=== PATIENT | male | born 1955 | race Caucasian/White ===

== ENCOUNTER 2016-08-24 16:29 | Emergency (ER) | payer OTHER ==
[~2016-08-24] VITALS: Ht 167.6 cm; Wt 81.8 kg
[2016-08-24] MEDS ORDERED: PARO20TA24 PO (16:45)
[2016-08-24] MEDS ORDERED: OLAN7.5T2 PO (16:45)
[2016-08-24] MEDS ORDERED: TAMS0.4C32 PO (16:45)
[2016-08-24] MEDS ORDERED: APIX2.5T PO (16:45)
[2016-08-24] MEDS ORDERED: RISP1 PO (16:45)
[2016-08-24] MEDS ORDERED: BENZ0.5T6 PO (16:45)
[2016-08-24] MEDS ORDERED: LEVO100 PO (16:45)
[2016-08-24] MEDS ORDERED: CHL25 PO (16:45)
[2016-08-24] MEDS ORDERED: SENN-30 PO (16:45)
[2016-08-24 17:55] LABS: ANION GAP 6 mmol/L (8-16); CALCIUM, TOTAL 8.8 mg/dL (8.8-10.5); CARBON DIOXIDE 32 mmol/L (22-29); CHLORIDE 101 mmol/L (98-107); CREATININE 0.82 mg/dL (0.60-1.30); GLOMERULAR FILTR. RATE CALC > 60 mL/min (>60); POTASSIUM 3.5 mmol/L (3.5-5.1); SODIUM SERUM 139 mmol/L (136-145); UREA NITROGEN, BLOOD 20 mg/dL (7-18)
[2016-08-24 17:58] LABS: BASOPHILS # (AUTO) 0.07 K/uL (0.00-0.20); BASOPHILS % (AUTO) 0.7 % (0.0-2.0); EOSINOPHILS % (AUTO) 3.35 % (1.0-6.0); HEMATOCRIT 40.9 % (41-53); HEMOGLOBIN 13.6 g/dL (13.5-17.5); LYMPHOCYTES # (AUTO) 2.3 K/uL (1.0-4.8); LYMPHOCYTES % (AUTO) 25.1 % (22.0-44.0); MEAN CORPUSCULAR HEMOGLOBIN 30.1 pg (26.0-34.0); MEAN CORPUSCULAR HGB CONC 33.3 G/dL (31.0-37.0); MEAN CORPUSCULAR VOLUME 91 fL (80-100); MONOCYTES # (AUTO) 0.6 K/uL (0.1-1.0); MONOCYTES % (AUTO) 6.6 % (2.0-9.0); NEUTROPHILS # (AUTO) 5.8 K/uL (1.8-7.7); NEUTROPHILS % (AUTO) 64.2 % (40.0-70.0); PLATELET COUNT (AUTO) 297 K/uL (150-450); RED BLOOD CELL COUNT(AUTO) 4.52 MIL/uL (4.50-5.90); RED CELL DISTRIBUTION WIDTH 13.6 % (11.5-14.5)
[2016-08-24 18:01] LABS: ALANINE AMINOTRANSFERASE 23 U/L (12-78); ALBUMIN 3.4 g/dL (3.4-5.0); ASPARTATE AMINOTRANSFERASE 29 U/L (15-37); BILIRUBIN,TOTAL 0.3 mg/dL (0.1-1.0); TOTAL PROTEIN, SERUM 7.3 g/dL (6.4-8.2)
[2016-08-24] MEDS ORDERED: LORazepam 1 MG TABLET PO ONE (18:30)
[2016-08-24 19:00] VITALS: BP 114/64
[2016-08-24 19:50] LABS: APPEARANCE,URINE CLOUDY (CLEAR); GLUCOSE, URINE (UA) NEGATIVE (NEGATIVE); KETONES,URINE NEGATIVE (NEGATIVE); LEUKOCYTE ESTERASE ,URINE TRACE (NEGATIVE); OCCULT BLOOD,URINE NEGATIVE (NEGATIVE); PROTEIN,URINE NEGATIVE (NEGATIVE)
[2016-08-24 20:13] LABS: ADD UA MICROSCOPIC YES
[2016-08-24 20:14] LABS: SQUAMOUS EPITHELIAL CELL,UR Few /LPF (None Seen)
[2016-08-24 20:15] LABS: RBC,URINE 0-2 /HPF (0-2)
== END 2016-08-24 19:30 | disposition home or self-care (01) ==
LOC: EMS 16:33
DX: F03.90 Unspecified dementia, unspecified severity, without behavioral disturbance, psychotic disturbance, mood disturbance, and anxiety (principal); F32.9 Major depressive disorder, single episode, unspecified
CPT/HCPCS: 36415; 80053; 80307; 81001; 85025; 87077; 87086; 99284; G0480

== ENCOUNTER 2023-03-07 14:51 | Emergency (ER) | payer OTHER ==
[~2023-03-07] VITALS: Ht 177.8 cm; Wt 99.4 kg
[~2023-03-07 14:51] MED LIST: APIX2.5T PO; BENZ0.5T49 PO; CHL25 PO; LEVO100 PO; OLAN7.5T22 PO; PARO-38 PO; RISP1TAB48 PO; SENN-277 PO; TAMS0.4C34 PO
[2023-03-07 16:43] VITALS: TEMP 99
[2023-03-07 20:14] VITALS: BP 155/89; PULSE 91; RESP 17
== END 2023-03-07 20:17 | disposition home or self-care (01) ==
LOC: EMS 14:53
DX: S09.90XA Unspecified injury of head, initial encounter (principal); M19.90 Unspecified osteoarthritis, unspecified site; F32.A Depression, unspecified; F03.90 Unspecified dementia, unspecified severity, without behavioral disturbance, psychotic disturbance, mood disturbance, and anxiety; W06.XXXA Fall from bed, initial encounter; Y93.89 Activity, other specified; Y92.89 Other specified places as the place of occurrence of the external cause; Y99.8 Other external cause status
CPT/HCPCS: 70450; 72125; 99284